=== PATIENT | female | born 2000 | race Hispanic/Latino ===

== ENCOUNTER 2024-10-26 11:02 | Emergency (ER) | payer BC ==
[~2024-10-26] VITALS: Ht 144.8 cm; Wt 56.4 kg
[2024-10-26 11:05] VITALS: PULSE 81; RESP 16; TEMP 98.1
[2024-10-26] MEDS: ONDANSETRON HCL INJ 2MG/ML 2ML 2 MG/ML VIAL IV STA (11:32)
[2024-10-26] MEDS: KETOROLAC TROMETHAMINE 30 MG/ML VIAL IV STA (11:32)
[2024-10-26] MEDS: SODIUM CHLORIDE 0.9% 1000ML 1,000 ML IV ONE ×2 (11:32→13:40)
[2024-10-26] MEDS ORDERED: IOPAMIDOL 370 MG/ML 100 ML INFUS..BTL INJ ONE (12:34)
[2024-10-26] MEDS ORDERED: PROMETHAZINE HCL (IM) 25 MG/ML VIAL IM ONE (13:35)
[2024-10-26] MEDS: PROMETHAZINE 12.5MG/ NACL 0.9% 12.5 MG/50 ML BAG IV ONE (13:40)
[2024-10-26] MEDS ORDERED: ONDANSETRON ODT4 MG PO (14:09)
[2024-10-26 14:21] VITALS: BP 105/61; PULSE 10; RESP 17; TEMP 97.7; O2SAT 99
== END 2024-10-26 14:19 | disposition home or self-care (01) ==
LOC: FSED 11:20
DX: R11.2 Nausea with vomiting, unspecified (principal); A08.4 Viral intestinal infection, unspecified; R10.13 Epigastric pain; K42.9 Umbilical hernia without obstruction or gangrene; K76.0 Fatty (change of) liver, not elsewhere classified
CPT/HCPCS: 74177; 80053; 81003; 81025; 85025; 99283; J1885; J2405; J2550; J7030; Q9967